=== PATIENT | male | born 1965 | race Two or more races ===

== ENCOUNTER 2019-12-08 16:44 | Emergency (ER) | payer OTHER ==
[~2019-12-08] VITALS: Ht 170.2 cm; Wt 105.2 kg
[2019-12-08] MEDS ORDERED: ZIAC 2.5-6.251 EACH PO (17:17)
== END 2019-12-08 19:11 | disposition home or self-care (01) ==
LOC: ER 16:44
DX: K04.7 Periapical abscess without sinus (principal)

== ENCOUNTER 2021-07-10 10:00 | Outpatient (CLI) | payer OTHER ==
[~2021-07-10 10:00] MED LIST: ZIAC 2.5-6.251 EACH PO
== END 2021-07-10 10:30 | disposition home or self-care (01) ==
LOC: PPH VACUNA 10:00
PROVIDERS: ATTEND Emergency Medicine Pediatric Emergency Medicine
DX: Z23 Encounter for immunization (principal)

== ENCOUNTER 2022-02-13 18:40 | Emergency (ER) | payer OTHER ==
[~2022-02-13] VITALS: Ht 170.2 cm; Wt 104.3 kg
== END 2022-02-13 22:18 | disposition home or self-care (01) ==
LOC: ER 18:40
DX: M54.31 Sciatica, right side (principal); I10 Essential (primary) hypertension

== ENCOUNTER → 2023-09-10 | Emergency (ER) | payer OTHER ==
[~2023-09-10] VITALS: Ht 170.2 cm; Wt 96.6 kg
[~2023-09-10] MED LIST changes: +ALDACTONE100 MG; +HYDRODIURIL12.5 MG PO; +LASIX40 MG PO; +POTASSIUM CHLO20 ME1 PO
[2023-09-10 17:49] LABS: HEMATOCRIT 33.2 % (39.0-48.0); HEMOGLOBIN 11.9 g/dL (13-16.00); MEAN CELL VOLUME 94.1 fL (80.0-100.00); MEAN CORPUSCULAR HEMOGLOBIN 33.7 pg (27.00-32.0); MEAN CORPUSCULAR HGB CONC 35.8 g/dl (32.0-36.0); PLATELET COUNT 195 K/uL (150-450); RED BLOOD COUNT 3.53 M/uL (4.00-6.00); RED CELL DISTRIBUTION WIDTH 13.5 % (11.5-14.5)
[2023-09-10 18:24] LABS: ALBUMIN 2.7 gm/dL (3.4-5.0); BILIRUBIN TOTAL 3.48 mg/dL (0.3-1.2); BILIRUBIN,CONJUGATED 3.03 mg/dL (0.0-0.2); BILIRUBIN,UNCONJUGATED 0.45 mg/dL (0.0-0.6); CREATININE SERUM 2.04 mg/dL (0.70-1.30); GFR 33.95; GLOBULINA 4.8 G/DL (2.4-3.5); POTASSIUM 4.74 mEq/L (3.5-5.1); TOTAL PROTEIN 7.5 gm/dL (6.4-8.2)
== END | disposition left against medical advice (07) ==
LOC: ER 15:09
PROVIDERS: Nurse Practitioner Family
DX: R53.1 Weakness (principal); I10 Essential (primary) hypertension